=== PATIENT | male | born 1965 | race Caucasian/White ===

== ENCOUNTER 2021-04-26 22:46 | Observation (INO) | payer MEDICARE, MEDICAID ==
[~2021-04-26] VITALS: Ht 185.4 cm; Wt 117.9 kg
[~2021-04-26 22:46] MED LIST: B-COMPLEX 100400 MC1 PO; B-COMPLEX-VITA1 EACH; CARVEDILOL12.5 MG PO; GLIPIZIDE-METF1 EAC2 PO; GLUCOTROL10 MG; LISINOPRIL10 MG PO; LOW DOSE ASPIRI81 M1 PO; MIRALAX255 GM; NITROGLYCERIN0.4 MG SL; PLAVIX 75 MG TA75 MG PO; PROTONIX40 M2 PO; TRAMADOL 50 MG50 MG PO; ZANTAC PO; ZOCOR 20 MG TAB20 M1 PO
[2021-04-26 23:34] LABS: ABSOLUTE BASOPHILS 0.1 thou/uL (0.0-0.2); ABSOLUTE EOSINOPHILS 0.1 thou/uL (0.0-0.7); ABSOLUTE LYMPHOCYTES 2.1 thou/uL (0.8-5.3); ABSOLUTE MONOCYTES 0.6 thou/uL (0.0-1.2); ABSOLUTE NEUTROPHILS 9.7 thou/uL (1.6-8.1); BASOPHILS 0.6 %; EOSINOPHILS 0.9 %; HEMATOCRIT 49.3 % (42.0-52.0); HEMOGLOBIN 17.1 gm/dL (14.0-18.0); LYMPHOCYTES 16.6 %; MCH 27.4 pg (26.0-34.0); MCHC 34.6 g/dL (28.0-37.0); MCV 79.2 fL (80.0-100.0); MONOCYTES 4.5 %; NUCLEATED RBCS 0 /100WBC; PLATELET COUNT* 163 thou/uL (150-400); POLYS 77.4 %; RBC 6.22 mil/uL (4.50-6.00); RDW-CV 15.6 % (10.5-14.5); WBC 12.6 thou/uL (4.0-11.0)
[2021-04-26 23:48] LABS: CALCIUM 8.9 mg/dL (8.5-10.1); CREATININE 1.3 mg/dL (0.6-1.3); POTASSIUM 3.4 mmol/L (3.5-5.1)
[2021-04-26 23:58] LABS: ALBUMIN 3.3 g/dL (3.4-5.0); MAGNESIUM 1.7 mg/dL (1.8-2.4); PHOSPHORUS* 3.1 mg/dL (2.5-4.9); TOTAL BILIRUBIN 1.1 mg/dL (<0.1-1.0); TOTAL PROTEIN 7.6 g/dL (6.4-8.2)
[2021-04-27] MEDS ORDERED: HYDROCODON-ACE1 EAC7 PO (00:41)
[2021-04-27] MEDS ORDERED: FUROSEMIDE 20 M20 MG PO (00:41)
[2021-04-27] MEDS ORDERED: ENTRESTO 24 MG1 EACH PO (00:42)
[2021-04-27] MEDS ORDERED: IMDUR 30 MG TAB30 M1 PO (00:42)
[2021-04-27] MEDS ORDERED: NOVOLOG FL100 UNIT/M SUBQ (00:44)
[2021-04-27] MEDS ORDERED: CHILDREN'S ZYRT10 M1 PO (00:44)
[2021-04-27] MEDS ORDERED: LANTUS SUBQ (00:44)
[2021-04-27] MEDS ORDERED: MAGNESIUM250 M1 PO (00:45)
[2021-04-27] MEDS ORDERED: VITAMIN C1000 MG PO (00:45)
[2021-04-27] MEDS ORDERED: VITAMIN B12-FO1 EAC1 PO (00:45)
[2021-04-27 05:43] LABS: URINE BILIRUBIN NEGATIVE (Negative); URINE BLOOD NEGATIVE (Negative); URINE CLARITY CLEAR; URINE COLOR YELLOW; URINE GLUCOSE-RANDOM NEGATIVE (Negative); URINE KETONES NEGATIVE (Negative); URINE LEUKOCYTES-REFLEX NEGATIVE (Negative); URINE NITRITE-REFLEX NEGATIVE (Negative); URINE PROTEIN NEGATIVE (Negative); URINE SPECIFIC GRAVITY 1.025 (1.005-1.030); URINE UROBILINOGEN 0.2 E.U./dl (0.2-1.0)
[2021-04-27] MEDS ORDERED: BENTYL 10 MG CA10 M1 PO (09:14)
[2021-04-27] MEDS ORDERED: IMODIUM A-D2 MG PO (09:14)
--- NOTE | 2021-04-27 09:26 | EKG ---
[place] [address] ELECTROCARDIOGRAM REPORT Name: HARDIK LAW Room: [address]#: [id number] Admission: 04/27/21 Attend Phys: Shreyas Morse, Discharge: Date of : 67 Date of Service: 04/26/21 2319 Report #: [id number] THIS REPORT FOR: //name// [facility] [place] ED Test Date: 2021-04-26 Test Time: 23:19:38 Pat Name: HARDIK LAW Department: Room: [facility] Gender: M Application Security Developer: [place] : 1965 Requested By: Sarah Guillermo Order Number: [id number] MD: Ford Colvin Measurements Intervals [place] Rate: 84 P: 152 NM: 274 QRS: 2 QRSD: 170 T: -27 QT: 455 QTc: 538 Interpretive Statements Sinus or ectopic atrial rhythm Atrial premature complex Prolonged NM interval Right bundle branch block Compared to ECG 12/05/2011 08:31:13 Ectopic atrial rhythm now present Atrial premature complex(es) now present Right bundle-branch block now present Ventricular premature complex(es) no longer present Electronically Signed On 04-27-2021 9:26:09 CDT by Ford Colvin [email or web address] <ELECTRONICALLY SIGNED> By: Ford Colvin MD, [facility] 04/27/21 0926 18 18 Ford Colvin MD, [facility] /EPI
[2021-04-27 09:30] VITALS: BP 159/79
[2021-04-27 09:45] VITALS: BP 159/79
[2021-04-27 10:40] VITALS: BP 159/79
[2021-04-27 10:47] VITALS: BP 159/79
== END 2021-04-27 10:40 | disposition home or self-care (01) ==
LOC: M.ERS 22:46 → M.TBA-ER 04-27 04:11
PROVIDERS: Personal Emergency Response Attendant; ADMIT Internal Medicine; ATTEND Internal Medicine
DX: R19.7 Diarrhea, unspecified (principal); E11.65 Type 2 diabetes mellitus with hyperglycemia; Z20.822 Contact with and (suspected) exposure to COVID-19; I25.10 Atherosclerotic heart disease of native coronary artery without angina pectoris; I10 Essential (primary) hypertension; E87.6 Hypokalemia; Z95.1 Presence of aortocoronary bypass graft; Z79.82 Long term (current) use of aspirin; Z79.4 Long term (current) use of insulin; Z79.899 Other long term (current) drug therapy